=== PATIENT | female | born 1965 | race American Indian/Alaskan Native ===

== ENCOUNTER 2021-10-27 10:30 | Emergency (ER) | payer SELFPAY ==
[2021-10-27 14:06] VITALS: BP 130/87
--- NOTE | 2021-10-27 14:36 | Emergency Department Report ---
ED Neuro Deficit HPI - General Chief Complaint: Extremity Problem,Nontraumatic Stated Complaint: NUMBNESS IN LEGS Time Seen by Provider: 10/27/21 14:32 Source: patient Mode of arrival: Ambulatory Limitations: No Limitations - History of Present Illness Initial Comments: 56-year-old -[place] female who is a chronic smoker presents to the emergency room stating she has numbness to both for her legs for greater than 2 weeks. Patient denies any recent injury denies any diabetes denies any fever chills no back pain. States she does have a history of hypertension is currently not treated as she does not have a primary care provider. She is taking nothing for her hypertension. 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 Was noted that her blood pressure is 193/97 with no symptoms. Onset/Timin -: week(s) Location: left leg (Numbness), right leg Presenting Symptoms: Absent: Weak/Paralyzed One Side, Sudden, Severe Headache, Blurred/Loss of Vision, Facial Droop/Numbness, Unable to Speak Clearly, Altered Mental Status History of same: No Improves With: none Worsens With: none On Anticoagulants: No Context: gradual onset Associated Symptoms: denies other symptoms. denies: nausea/vomiting, vertigo, seizures, weakness Treatments Prior to Arrival: none - Related Data Home Medications: Home Medications Medication Instructions Recorded Confirmed Last Taken No Known Home Medications [No 10/27/21 10/27/21 Unknown Reported Home Medications] Allergies/Adverse Reactions: Allergies Allergy/AdvReac Type Severity Reaction Status Date / Time aspirin AdvReac Bleeding Verified 10/27/21 12:01 ED Review of Systems ROS: Stated complaint: NUMBNESS IN LEGS Other details as noted in HPI Comment: All other systems reviewed and negative ED Past Medical Hx - Social History Smoking Status: Never Smoker Substance Use Type: None - Medications Home Medications: Home Medications Medication Instructions Recorded Confirmed Last Taken Type No Known Home Medications [No 10/27/21 10/27/21 Unknown History Reported Home Medications] ED Neuro Physical Exam - General Limitations: No Limitations General appearance: alert, in no apparent distress Suspected Stroke: No - Head Head exam: Present: atraumatic, normocephalic - Eye Eye exam: Present: EOMI - ENT ENT exam: Present: normal external ear exam - Neck Neck exam: Present: normal inspection, full ROM - Respiratory Respiratory exam: Absent: respiratory distress - Cardiovascular Cardiovascular Exam: Present: regular rate - Extremities Exam Extremities exam: Present: full ROM, normal capillary refill, other (Tactile intact on lower extremities). Absent: tenderness, pedal edema, calf tenderness - Back Exam Back exam: Present: normal inspection, full ROM. Absent: muscle spasm - Neurological Exam Neurological exam: Present: alert, oriented X3, normal gait - NIHSS Assessment Interval: Baseline 1a. Level of Consciousness: alert/keenly responsive 1b. LOC Questions: answers both correctly 1c. LOC Commands: performs tasks correctly 2. Best Gaze: normal 3. Visual: no visual loss 4. Facial Palsy: normal symmetrical movement 6a. Motor Leg Left: no drift 6b. Motor Leg Right: no drift 7. Limb Ataxia: absent 8. Sensory: normal 9. Best Language: no aphasia 10. Dysarthria: normal 11. Extinction/Inattention: no abnormality - Psychiatric Psychiatric exam: Present: normal affect, normal mood - Skin Skin exam: Present: warm, dry, intact, normal color. Absent: rash ED Course Vital Signs 10/27/21 10/27/21 11:55 14:04 Temperature 97.7 F 98.9 F Pulse Rate 89 77 Respiratory 18 18 Rate Blood Pressure 193/97 130/87 [Right] O2 Sat by Pulse 98 97 Oximetry - Medical Decision Making 56-year-old -[place] female who is a chronic smoker presents to the emergency room stating she has numbness to both for her legs for greater than 2 weeks. Patient denies any recent injury denies any diabetes denies any fever chills no back pain. States she does have a history of hypertension is cu rrently not treated as she does not have a primary care provider. She is taking nothing for her hypertension. 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 Was noted that her blood pressure is 193/97 with no symptoms. Discussed with patient she needs to follow-up with her primary care provider. Patient has no back injury no fever no loss of urinary or bowel incontinent. She is able to ambulate without ataxia. She does smoke cigarettes which increases blood flow to the lower extremities which can cause numbness and tingling. Critical care attestation.: If time is entered above; I have spent that time in minutes in the direct care of this critically ill patient, excluding procedure time. ED Disposition Clinical Impression: Numbness and tingling of both lower extremities, Hypertension Disposition: HOME / SELF CARE / HOMELESS Is pt being admited?: No Does the pt Need Aspirin: No Condition: Stable Instructions: Peripheral Neuropathy, Paresthesia, [id number], Hypertension (ED) Additional Instructions: Recommend to discontinue smoking as this increases for peripheral neuropathy increases for peripheral vascular and peripheral artery disease. I recommend to follow-up with a primary care provider I have listed their information below for your convenience. Referrals: [facility] [Provider Group] - 3-5 Days SONAM FERRER MD [Staff Physician] - 3-5 Days Forms: Work/School Release Form(ED) Time of Disposition: 14:38
== END 2021-10-27 15:00 | disposition home or self-care (01) ==
LOC: ED 10:30
DX: R20.2 Paresthesia of skin (principal); I10 Essential (primary) hypertension
CPT/HCPCS: 99282

== ENCOUNTER 2021-11-02 15:50 | Inpatient (IN) | payer SELFPAY ==
--- NOTE | 2021-11-02 16:22 | Cat Scan Report ---
CT HEAD WITHOUT CONTRAST INDICATION / CLINICAL INFORMATION: CODE STROKE CALL [phone] Left-sided weakness. TECHNIQUE: All CT scans at this location are performed using CT dose reduction for ALARA by means of automated e xposure control. COMPARISON: None available. FINDINGS: HEMORRHAGE: No evidence of intracranial hemorrhage or extra-axial fluid collection. EXTRA-AXIAL SPACES: Cortical sulci, sylvian fissures and basilar cisterns are at the upper limit of n ormal for size given the patient's age of 56 years. VENTRICULAR SYSTEM: The third and lateral ventricles are of normal size and configuration. CEREBRAL PARENCHYMA: There is evidence of remote small deep infarction in the left thalamus. No indic ation of acute ischemic injury is observed on this noncontrast head CT. MIDLINE SHIFT OR HERNIATION: There is no mass effect. CEREBELLUM / BRAINSTEM: There is a region of decreased attenuation at the pontomesencephalic junction to the left the midline which may represent a remote small deep infarction in this location. MIDLINE STRUCTURES:No abnormalities of the pituitary gland or pineal region are identified. INTRACRANIAL VESSELS: Calcified atherosclerotic plaque is present along the course of the cavernous s egments of both internal carotid arteries. ORBITS: visualized portions of the orbits have an unremarkable appearance. SOFT TISSUES of HEAD: No significant abnormality. CALVARIUM: Evaluation of bone windows reveals no abnormalities. PARANASAL SINUSES / MASTOID AIR CELLS: Visualized portions of the paranasal sinuses are free from inf lammatory mucosal disease. Mastoid air cells are normally pneumatized. IMPRESSION: 1. 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 2. No acute intracranial abnormalities are identified. CODE STROKE: Time of Communication (PSYCHODRAMATIST/CDT): 1515 Central standard time Licensed Practitioner Receiving Report: Dr. Leach of the [facility] emergency de partment. Signer Name: Migue Luevano MD Signed: 11/02/2021 4:18 PM Workstation Name: [id number]
--- NOTE | 2021-11-02 16:32 | Emergency Department Report ---
Blank Doc - Documentation Documentation: [place] [facility] Consult Note # Demographics Consult Type: Acute Stroke Level 2 (4.5-24 hrs) Patient Location: Emergency Room First Name: Apurva Last Name: Renetta Age: 56 Gender: Female Facility: [facility] Time of Initial Page ( Time): 11/02/2021, 15:36 Time of Return Call ( Time): 11/02/2021, 15:36 # HPI History: 56yo F with left weakness since last night # Scores Time of exam and NIHSS ( Time): 11/02/2021, 15:50 Level of Consciousness 1a: [0] = Alert; keenly responsive LOC Questions 1b: [0] = Answers both questions correctly LOC Commands 1c: [0] = Performs both tasks correctly Best Gaze 2: [0] = Normal Visual 3: [0] = No visual loss Facial Palsy 4: [0] = Normal symmetrical movements Motor Arm Left 5a: [1] = Drift Motor Arm Right 5b: [0] = No drift Motor Leg Left 6a: [0] = No drift Motor Leg Right 6b: [0] = No drift Limb Ataxia 7: [0] = Absent Sensory 8: [1] = [id number] sensory loss Best Language 9: [0] = No aphasia Dysarthria 10: [0] = Normal Extinction and Inattention 11: [0] = No abnormality NIHSS Total: 2 # PMH-FH-SH Past Medical History: hypertension stroke # Assessment Impression: Ischemic Stroke (Acute) Stroke Mimic # Plan Thrombolytic/Intervention: NOT IV Thrombolysis or IA Intervention candidate Thrombolytic Exclusion: > 4.5 hours Intraarterial Exclusion: clinically consistent with small vessel disease Other: I have discussed my recommendations with the referring provider Additional Recommendations: MRI brain if symptoms persist # Logistics Telemedicine: Interactive 2 way audio and visual telecommunication technology was utilized during this visit
[2021-11-02 16:33] LABS: Basophils % (Auto) 0.5 % (0.0-1.8); Eosinophils # (Auto) 0.1 K/mm3 (0.0-0.4); Eosinophils % (Auto) 1.1 % (0.0-4.3); Hematocrit 39.8 % (30.3-42.9); Hemoglobin 13.4 gm/dl (10.1-14.3); Lymphocytes # (Auto) 1.3 K/mm3 (1.2-5.4); Lymphocytes % (Auto) 20.5 % (13.4-35.0); Mean Corpuscular HGB Conc 34 % (30-34); Mean Corpuscular Volume 114 fl (79-97); Monocytes # (Auto) 0.7 K/mm3 (0.0-0.8); Monocytes % (Auto) 10.8 % (0.0-7.3); Platelet Count 248 K/mm3 (140-440); Red Cell Distribution Width 17.2 % (13.2-15.2)
[2021-11-02 16:52] LABS: BUN/Creatinine Ratio 12; Blood Urea Nitrogen 6 mg/dL (7-17); Calcium 8.4 mg/dL (8.4-10.2); Hemolysis Index 47
--- NOTE | 2021-11-02 16:52 | Emergency Department Report ---
HPI - General Chief Complaint: Neuro Symptoms/Deficit Time Seen by Provider: 11/02/21 15:59 - [facility] HPI: Room 19 The patient is a 56-year-old female present with chief complaint of left-sided weakness. The patient admits to having nausea vomiting diarrhea for the past 3 to 4 weeks in addition to tingling of both hands and feet. Patient states on 10/28/2021 she noticed increased weakness of her left arm and left leg she began feeling off balance. Patient has residual left-sided weakness from previous CVA years ago but she states this weakness worsened. Today the patient states she developed an occipital headache and even more weakness in her left upper extremity left lower extremity. Patient complains of numbness in bilateral lower extremities. Patient also states she had intermittent sharp left-sided chest pain last night ED Past Medical Hx - Past Medical History Hx Hypertension: Yes Hx CVA: Yes (Residual left-sided weakness) - Surgical History Past Surgical History?: No - Family History Family history: no significant - Social History Smoking Status: Former Smoker (None x2-months) Substance Use Type: None (Denies illicit drug use), Alcohol (Occasional) - Medications Home Medications: Home Medications Medication Instructions Recorded Confirmed Last Taken Type No Known Home Medications [No 10/27/21 10/27/21 Unknown History Reported Home Medications] ED Review of Systems ROS: Stated complaint: CODE STROKE Other details as noted in HPI Constitutional: no symptoms reported Eyes: denies: eye pain ENT: denies: throat pain Respiratory: no symptoms reported Cardiovascular: chest pain Endocrine: no symptoms reported Gastrointestinal: nausea, vomiting, diarrhea Genitourinary: denies: dysuria Musculoskeletal: denies: back pain Neurological: headache, weakness, numbness Physical Exam - Physical Exam Physical Exam: GENERAL: The patient is well-developed well-nourished female lying on stretcher not appear to be in acute. [] HEENT: Normocephalic. Atraumatic. Extraocular motions are intact. Patient has moist mucous membranes. NECK: Supple. Trachea midline CHEST/LUNGS: Clear to auscultation. There is no respiratory distress noted. HEART/CARDIOVASCULAR: Regular. There is no tachycardia. There is no gallop rub or murmur. ABDOMEN: Abdomen is soft, nontender. Patient has normal bowel sounds. There is no abdominal distention. SKIN: There is no rash. There is no edema. There is no diaphoresis. NEURO: The patient is awake, alert, and oriented. The patient is cooperative. Cranial nerves II through XII grossly intact. The patient is able to hold the right upper extremity at 45 degree angle for 10-second count without drift. Patient is able to hold left upper extremity at 45 degree angle for 10-second count however it drifts but does not go all the way to the bed. The patient is able to hold right lower extremity at 30 degree angle for 5-second count however it drifts but does not fall back to the stretcher. Patient is able to hold left lower extremity at 30 degree angle for 5-second count however it falls back to the stretcher before 5 seconds. The patient has normal speech. NIHSS=4. GCS 15 MUSCULOSKELETAL: There is no evidence of acute injury. ED Medical Decision Making - Lab Data Result diagrams: 11/02/21 16:08 11/02/21 16:08 Laboratory Tests 11/02/21 11/02/21 11/02/21 15:52 16:08 16:08 WBC 6.3 RBC 3.50 L Hgb 13.4 Hct 39.8 MCV 114 H MCH 38 H MCHC 34 RDW 17.2 H Plt Count 248 Lymph % (Auto) 20.5 [place] % (Auto) 10.8 H Eos % (Auto) 1.1 Baso % (Auto) 0.5 Lymph # (Auto) 1.3 [place] # (Auto) 0.7 Eos # (Auto) 0.1 Baso # (Auto) 0.0 Seg Neutrophils % 67.1 Seg Neutrophils # 4.2 PT INR APTT Thrombin Time Sodium 135 L Potassium 2.3 L* Chloride 86.4 L Carbon Dioxide 32 H Anion Gap 19 BUN 6 L Creatinine 0.5 L Estimated GFR > 60 BUN/Creatinine Ratio 12 Glucose 95 POC Glucose 103 Calcium 8.4 Troponin T < 0.010 11/02/21 18:48 WBC RBC Hgb Hct MCV MCH MCHC RDW Plt Count Lymph % (Auto) Liberty % (Auto) Eos % (Auto) Baso % (Auto) Lymph # (Auto) [place] # (Auto) Eos # (Auto) Baso # (Auto) Seg Neutrophils % Seg Neutrophils # PT 13.1 INR 0.90 APTT 26.6 Thrombin Time 17.6 Sodium Potassium Chloride Carbon Dioxide Anion Gap BUN Creatinine Estimated GFR BUN/Creatinine Ratio Glucose POC Glucose Calcium Troponin T - EKG Data -: EKG Interpreted by Me EKG shows normal: sinus rhythm Rate: normal - EKG Data When compared to previous EKG there are: previous EKG unavailable Interpretation: other (No ischemic changes seen) - Radiology Data Radiology results: report reviewed (CT head), image reviewed (CT head) [facility] [address] [place] [address] Cat Scan Report Signed Patient: AMBAR MAYES MR#: [id number] : 1965 Acct:[id number] Age/Sex: 56 / F ADM Date: 11/02/21 Loc: ED Attending Dr: Ordering Physician: JOYCE HERNÁNDEZ MD Date of Service: 11/02/21 Procedure(s): CT head/brain wo con Accession Number(s): [id number] cc: JOYCE HERNÁNDEZ MD CT HEAD WITHOUT CONTRAST INDICATION / CLINICAL INFORMATION: CODE STROKE CALL [phone] Left-sided weakness. TECHNIQUE: All CT scans at this location are performed using CT dose reduction for ALARA by means of automated exposure control. COMPARISON: None available. FINDINGS: HEMORRHAGE: No evidence of intracranial hemorrhage or extra-axial fluid collection. EXTRA-AXIAL SPACES: Cortical sulci, sylvian fissures and basilar cisterns are at the upper limit of normal for size given the patient's age of 56 years. VENTRICULAR SYSTEM: The third and lateral ventricles are of normal size and configuration. CEREBRAL PARENCHYMA: There is evidence of remote small deep infarction in the left thalamus. No indication of acute ischemic injury is observed on this noncontrast head CT. MIDLINE SHIFT OR HERNIATION: There is no mass effect. CEREBELLUM / BRAINSTEM: There is a region of decreased attenuation at the pontomesencephalic junction to the left the midline which may represent a remote small deep infarction in this location. MIDLINE STRUCTURES:No abnormalities of the pituitary gland or pineal region are identified. INTRACRANIAL VESSELS: Calcified atherosclerotic plaque is present along the course of the cavernous segments of both internal carotid arteries. ORBITS: visualized portions of the orbits have an unremarkable appearance. SOFT TISSUES of HEAD: No significant abnormality. CALVARIUM: Evaluation of bone windows reveals no abnormalities. PARANASAL SINUSES / MASTOID AIR CELLS: Visualized portions of the paranasal sinuses are free from inflammatory mucosal disease. Mastoid air cells are normally pneumatized. IMPRESSION: 1. Evidence of remote small deep infarctions left thalamus and pontomesencephalic junction to the left midline. 2. No acute i ntracranial abnormalities are identified. CODE STROKE: Time of Communication (REGISTERED NURSE BEHAVIORAL HEALTH/CDT): 1515 Central standard time Licensed Practitioner Receiving Report: Dr. Hernández of the [facility] emergency department. Signer Name: Migue Luevano MD Signed: 11/02/2021 4:18 PM Workstation Name: [id number] Transcribed By: Dictated By: Migue Luevano MD Electronically Authenticated By: Migue Champion MD Signed Date/Time: 11/02/211617 DD/ 09 TD/TT: - Differential Diagnosis CVA, hypokalemic periodic paralysis Critical care attestation.: If time is entered above; I have spent that time in minutes in the direct care o f this critically ill patient, excluding procedure time. ED Disposition Clinical Impression: Hypokalemia, Left-sided weakness Disposition: ADMITTED INPATIENT Is pt being admited?: Yes Does the pt Need Aspirin: No Condition: Fair Time of Disposition: 19:19 (Care transferred to hospitalist (Dr. Gonzales))
[2021-11-02] MEDS: POTASSIUM CHLORIDE 10 MEQ 10 MEQ/100 ML BAG IV SCH ×2 (17:30→20:17)
[2021-11-02] MEDS ORDERED: ONDANSETRON 4 MG/2 ML INJ IV ONE (17:38)
[2021-11-02] MEDS ORDERED: SODIUM CHLORIDE 0.9% 500 ML 500 ML ONE (17:47)
[2021-11-02] MEDS: CLOPIDOGREL 300 MG TAB PO ONE (18:08)
[2021-11-02 19:06] LABS: INR 0.9 (0.87-1.13)
[2021-11-02 19:07] LABS: Partial Thromboplastin Time 26.6 Sec. (24.2-36.6); Thrombin Time 17.6 Sec. (15.1-19.6)
--- NOTE | 2021-11-02 21:46 | History and Physical Report ---
History of Present Illness Date of examination: 11/02/21 Date of admission: 11/02/2021 Chief complaint: Numbness and weakness in both lower extremities for 1 week History of present illness: 56-year-old -[place] Citizen female with history of cerebrovascular accident and residual left-sided weakness comes in for numbness in both lower extremities which is precluding her from walking. Patient noticed increased weakness of the left arm and left lower extremities on 10/28/2021. Today's 11/02/2022. Patient also complains of numbness and lack of sensation in both lower extremities. Because of that patient states he is unable to walk and falling frequently. Patient has residual left-sided weakness from previous CVA st. patient also has headaches. Very poor historian. - Past Medical History --Hypertension: Yes --CVA: Yes (Residual left-sided weakness) - Surgical History --Past Surgical History?: No - Family History --Family history: no significant - Social History --Smoking Status: Former Smoker (None x2-months) --Substance Use Type: None (Denies illicit drug use), Alcohol (Occasional) - Medications --Home Medications: Home Medications Medication Instructions Recorded Confirmed Last Taken Type No Known Home Medications [No 10/27/21 10/27/21 Unknown History Reported Home Medications] --Review of Systems --ROS: Stated complaint: CODE STROKE Other details as noted in HPI Constitutional: no symptoms reported Eyes: denies: eye pain ENT: denies: throat pain Respiratory: no symptoms reported Cardiovascular: chest pain Endocrine: no symptoms reported Gastrointestinal: nausea, vomiting, diarrhea Genitourinary: denies: dysuria Musculoskeletal: denies: back pain Neurological: headache, weakness, numbness Medications and Allergies Allergies Allergy/AdvReac Type Severity Reaction Status Date / Time aspirin AdvReac Bleeding Verified 10/27/21 12:01 Home Medications Medication Instructions Recorded Confirmed Last Taken Type No Known Home Medications [No 10/27/21 10/27/21 Unknown History Reported Home Medications] Exam - Constitutional Vitals: Temp Pulse Resp BP Pulse Ox 79 24 180/74 90 11/02/21 20:00 11/02/21 20:00 11/02/21 20:00 11/02/21 20:00 General appearance: Present: no acute distress, well-nourished - EENT Eyes: Present: PERRL ENT: hearing intact, clear oral mucosa - Neck Neck: Present: supple, normal ROM - Respiratory Respiratory effort: normal Respiratory: bilateral: CTA - Cardiovascular Heart rate: 78 Rhythm: regular Heart Sounds: Present: S1 & S2. Absent: rub, click - Extremities Extremities: no ischemia, pulses symmetrical, No edema Peripheral Pulses: within normal limits - Abdominal General gastrointestinal: Present: soft, non-tender, non-distended, normal bowel sounds Female genitourinary: Present: normal - Integumentary Integumentary: Present: clear, warm, dry - Musculoskeletal Musculoskeletal: left sided weakness (4/5 power in both upper and lower extremities on the right side) - Psychiatric Psychiatric: appropriate mood/affect, intact judgment & insight - Neurologic Neurologic: CNII-XII intact, focal deficits, moves all extremities (Left-sided weakness, decreased sensation both lower extremities) - Allied Health Allied health notes reviewed: nursing, case management HEART Score - HEART Score Troponin: Troponin T < 0.010 ng/mL (0.00-0.029) 11/02/21 16:08 Results - Labs CBC & Chem 7: 11/03/21 04:10 11/03/21 04:10 Labs: Laboratory Last Values WBC 6.3 K/mm3 (4.5-11.0) 11/02/21 16:08 RBC 3.50 M/mm3 (3.65-5.03) L 11/02/21 16:08 Hgb 13.4 gm/dl (10.1-14.3) 11/02/21 16:08 Hct 39.8 % (30.3-42.9) 11/02/21 16:08 MCV 114 fl (79-97) H 11/02/21 16:08 MCH 38 pg (28-32) H 11/02/21 16:08 MCHC 34 % (30-34) 11/02/21 16:08 RDW 17.2 % (13.2-15.2) H 11/02/21 16:08 Plt Count 248 K/mm3 (140-440) 11/02/21 16:08 Lymph % (Auto) 20.5 % (13.4-35.0) 11/02/21 16:08 Porter % (Auto) 10.8 % (0.0-7.3) H 11/02/21 16:08 Eos % (Auto) 1.1 % (0.0-4.3) 11/02/21 16:08 Baso % (Auto) 0.5 % (0.0-1.8) 11/02/21 16:08 Lymph # (Auto) 1.3 K/mm3 (1.2-5.4) 11/02/21 16:08 Porter # (Auto) 0.7 K/mm3 (0.0-0.8) 11/02/21 16:08 Eos # (Auto) 0.1 K/mm3 (0.0-0.4) 11/02/21 16:08 Baso # (Auto) 0.0 K/mm3 (0.0-0.1) 11/02/21 16:08 Seg Neutrophils % 67.1 % (40.0-70.0) 11/02/21 16:08 Seg Neutrophils # 4.2 K/mm3 (1.8-7.7) 11/02/21 16:08 PT 13.1 Sec. (12.2-14.9) 11/02/21 18:48 INR 0.90 (0.87-1.13) 11/02/21 18:48 APTT 26.6 Sec. (24.2-36.6) 11/02/21 18:48 Thrombin Time 17.6 Sec. (15.1-19.6) 11/02/21 18:48 Sodium 135 mmol/L (137-145) L 11/02/21 16:08 Potassium 2.3 mmol/L (3.6-5.0) L* 11/02/21 16:08 Chloride 86.4 mmol/L (98-107) L 11/02/21 16:08 Carbon Dioxide 32 mmol/L (22-30) H 11/02/21 16:08 Anion Gap 19 mmol/L 11/02/21 16:08 BUN 6 mg/dL (7-17) L 11/02/21 16:08 Creatinine 0.5 mg/dL (0.6-1.2) L 11/02/21 16:08 Estimated GFR > 60 ml/min 11/02/21 16:08 BUN/Creatinine Ratio 12 % 11/02/21 16:08 Glucose 95 mg/dL (65-100) 11/02/21 16:08 POC Glucose 103 mg/dL (70-105) 11/02/21 15:52 Calcium 8.4 mg/dL (8.4-10.2) 11/02/21 16:08 Troponin T < 0.010 ng/mL (0.00-0.029) 11/02/21 16:08 Short CBC 11/02/21 11/03/21 Range/Units 16:08 04:10 WBC 6.3 6.4 (4.5-11.0) K/mm3 Hgb 13.4 12.2 (10.1-14.3) gm/dl Hct 39.8 36.7 (30.3-42.9) % Plt Count 248 207 (140-440) K/mm3 BMP 11/02/21 11/03/21 16:08 04:10 Sodium 135 L 140 Potassium 2.3 L* 2.5 L* Chloride 86.4 L 90.7 L Carbon Dioxide 32 H 35 H BUN 6 L 6 L Creatinine 0.5 L 0.4 L Glucose 95 94 Calcium 8.4 8.0 L Cardiac Enzymes 11/02/21 Range/Units 16:08 Troponin T < 0.010 (0.00-0.029) ng/mL Liver Function 11/03/21 Range/Units 04:10 Total Bilirubin 1.60 H (0.1-1.2) mg/dL AST 32 (5-40) units/L ALT 16 (7-56) units/L Alkaline Phosphatase 56 (35-129) units/L Albumin 3.1 L (3.9-5) g/dL - Imaging and Cardiology Imaging and Cardiology: Head evidence of remote small deep infarctions in the left thalamus and pontine/Cephalic junction to the left midline No acute intracranial abnormalities or bleed. Assessment and Plan Advance Directives: Yes (Full code) VTE prophylaxis?: Chemical Plan of care discussed with patient/family: Yes - Patient Problems (1) Acute CVA (cerebrovascular accident) Current Visit: Yes Status: Acute Plan to address problem: Unlikely Patient has vague symptoms of both lower extremity numbness and difficulty walking because of not able to feel the ground We will defer to neurology regarding diagnosis Possible recrudescence of the left hemiplegia CVA work-up including MRI carotid And echocardiogram Neurology consult Aspirin and Plavix High intensity statins PT and OT (2) Hypokalemia Current Visit: Yes Status: Acute Plan to address problem: Supplemented aggressively (3) Numbness and tingling of both lower extremities Current Visit: No Status: Acute Plan to address problem: Lower extremity sensory loss does not explain any acute CVA. Patient has loss of sensation in both lower extremities. LS spine etiology to be ruled out We will defer to neurology. (4) Hypertension Current Visit: Yes Status: Chronic Qualifiers: Hypertension type: primary hypertension Qualified Code(s): I10 - Essential (primary) hypertension Plan to address problem: Continue home antihypertensives and adjust medications (5) Hyperlipidemia Current Visit: Yes Status: Chronic Qualifiers: Hyperlipidemia type: mixed hyperlipidemia Qualified Code(s): E78.2 - Mixed hyperlipidemia Plan to address problem: Continue statins (6) Malnutrition Current Visit: Yes Status: Chronic Qualifiers: Malnutrition type: protein-calorie malnutrition Protein-calorie malnutrition severity: moderate Qualified Code(s): E44.0 - Moderate protein- calorie malnutrition Plan to address problem: Dietary supplements for now (7) DVT prophylaxis Current Visit: Yes Status: Acute Plan to address problem: On anticoagulation GI prophylaxis (8) Advance care planning Current Visit: Yes Status: Acute Plan to address problem: Disease education conducted, care plan discussed, diagnosis discussed, prognosis discussed. Patient is full code. Patient acknowledges understanding and agreement with care plan. +30 minutes.
[2021-11-02] MEDS ORDERED: ONDANSETRON 4 MG/2 ML INJ IV PRN (21:57)
[2021-11-02] MEDS ORDERED: ACETAMINOPHEN 325 MG TAB PO PRN (21:57)
[2021-11-02] MEDS ORDERED: MORPHINE 2 MG/1 ML INJ IV PRN (22:00)
[2021-11-02] MEDS ORDERED: METOCLOPRAMIDE 10 MG/2 ML INJ IV PRN (22:00)
[2021-11-02] MEDS ORDERED: SODIUM CHLORIDE 0.9% 1000 ML 1,000 ML IV SCH (22:00)
[2021-11-03] MEDS ORDERED: POTASSIUM CHLORIDE ER 20 MEQ TAB PO ONE ×2 (02:00→06:32)
[2021-11-03 04:38] LABS: Basophils % (Auto) 0.6 % (0.0-1.8); Eosinophils # (Auto) 0.1 K/mm3 (0.0-0.4); Eosinophils % (Auto) 1.7 % (0.0-4.3); Hematocrit 36.7 % (30.3-42.9); Hemoglobin 12.2 gm/dl (10.1-14.3); Lymphocytes # (Auto) 1.3 K/mm3 (1.2-5.4); Lymphocytes % (Auto) 20.1 % (13.4-35.0); Mean Corpuscular HGB Conc 33 % (30-34); Mean Corpuscular Volume 115 fl (79-97); Monocytes # (Auto) 0.7 K/mm3 (0.0-0.8); Monocytes % (Auto) 11.1 % (0.0-7.3); Platelet Count 207 K/mm3 (140-440); Red Blood Count 3.19 M/mm3 (3.65-5.03); Red Cell Distribution Width 17.2 % (13.2-15.2)
[2021-11-03 05:09] LABS: Alanine Aminotransferase 16 units/L (7-56); Albumin 3.1 g/dL (3.9-5); Blood Urea Nitrogen 6 mg/dL (7-17); Chol/HDL Ratio 5.45 %; HDL Cholesterol 31 mg/dL (40-59); Hemolysis Index 33; LDL Cholesterol,Direct 110 mg/dL (50-130)
[2021-11-03 05:11] LABS: BUN/Creatinine Ratio 15
[2021-11-03] MEDS: POTASSIUM CHLORIDE 10 MEQ 10 MEQ/100 ML BAG IV SCH ×6 (07:31→16:43)
[2021-11-03] MEDS: HEPARIN 5,000 UNIT/1 ML VIAL SUB-Q SCH ×4 (07:32→22:30)
[2021-11-03] MEDS: POTASSIUM CHLORIDE ER 20 MEQ TAB PO ONE ×2 (07:34→08:09)
[2021-11-03] MEDS: CLOPIDOGREL 300 MG TAB PO ONE ×2 (07:34→08:24)
[2021-11-03] MEDS: hydrALAZINE 25 MG TAB PO PRN ×3 (08:50→22:50)
--- NOTE | 2021-11-03 09:47 | Consultation ---
History of Present Illness Consult date: 11/03/21 Reason for Consult: CVA Chief complaint: Worsening left-sided weakness History of present illness: 56 yo right-handed female with hypertension, cva w/ residual left-sided weakness who presents with worsening weakness of the left arm/leg and also wit noted numbness of bilateral feet (up to knees) over the last 1 month with associated nausea, diarrhea. She thinks she has lost some weight over the last one month. She notes no acute changes in her primary senses, vertigo, chest pain/pressure, or palpiations or any covid-19 symptoms. Past History Past Medical History: hypertension, stroke Past Surgical History: No surgical history Social history: other (occassional alcohol; former smoker;) Family history: hypertension Medications and Allergies Allergies Allergy/AdvReac Type Severity Reaction Status Date / Time aspirin AdvReac Bleeding Verified 10/27/21 12:01 Home Medications Medication Instructions Recorded Confirmed Last Taken Type No Known Home Medications [No 10/27/21 10/27/21 Unknown History Reported Home Medications] Active Meds: Active Medications Acetaminophen (Acetaminophen 325 Mg Tab) 650 mg PO Q4H PRN PRN Reason: Pain MILD(1-3)/Fever >100.5/REMY Atorvastatin Calcium (Atorvastatin 40 Mg Tab) 40 mg PO QHS RIVERA Heparin Sodium (Porcine) (Heparin 5,000 Unit/1 Ml Vial) 5,000 unit SUB-Q Q12HR RIVERA Last Admin: 11/03/21 09:02 Dose: Not Given Hydralazine HCl (Hydralazine 25 Mg Tab) 25 mg PO Q8HR PRN PRN Reason: Hypertension Last Admin: 11/03/21 08:50 Dose: 25 mg Potassium Chloride (Kcl 10meq/100ml) 10 meq in 100 mls @ 100 mls/hr IV Q1H RIVERA Stop: 11/03/21 12:59 Metoclopramide HCl (Metoclopramide 10 Mg/2 Ml Inj) 10 mg IV Q6H PRN PRN Reason: Nausea And Vomiting Morphine Sulfate (Morphine 2 Mg/1 Ml Inj) 2 mg IV Q4H PRN PRN Reason: Pain, Moderate (4-6) Nifedipine (Nifedipine Xl 30 Mg Tab) 30 mg PO QDAY RIVERA Ondansetron HCl (Ondansetron 4 Mg/2 Ml Inj) 4 mg IV Q8H PRN PRN Reason: Nausea And Vomiting Oxycodone/Acetaminophen (Oxycodone /Acetaminophen 5-325mg Tab) 1 tab PO Q6H PRN PRN Reason: Pain, Moderate (4-6) Sodium Chloride (Sodium Chloride 0.9% 10 Ml Flush Syringe) 10 ml IV BID RIVERA Last Admin: 11/03/21 07:32 Dose: Not Given Sodium Chloride (Sodium Chloride 0.9% 10 Ml Flush Syringe) 10 ml IV PRN PRN PRN Reason: LINE FLUSH Review of Systems All systems: negative (as per hpi;) Physical Examination - Vital Signs Vital Signs: Vital Signs BP 183/92 11/02/21 16:33 - Physical Exam Narrative exam: Gen: nad, well-nourished; Head: normocephalic; Eyes: no gaze deviation; no ptosis; ENT: normal vocalization; CVS: warm and well-perfused; Pulm: no respiratory distress; GI: appears non-distended; Ext: no cyanosis appreciated at distal extremities; Skin: no acute rash at distal extremities; Heme: no pathologic ecchymosis appreciated at distal extremities; Neuro: alert, oriented to name, age, month, year, surroundings, no dysarthria, no aphasia, CN 2 - PERRL, visual prasad grossly intact, CN 3, 4, 6 - EOMI, CN 5 - facial sensation symmetric to light touch, CN 7 - facial movement symmetric, CN 8 - hearing grossly intact, CN 9, 10 - uvula midline, CN 11 symmetric shoulder movement, CN 12 - tongue midline; Motor - bue slight drift; at least 3/5 at lue; at least 4+/5 at rue; at least 4-/5 at ble except ankle plantar flexion with 2-/5 bilaterally; Sensory - light touch symmetric but decreased at bilateral feet, Cerebellar - fnf /hts intact, Gait - deferred secondary to fall risk; NIHSS (1a.) Level of Consciousness:0 (1b.) LOC Questions:0 (1c.) LOC Commands:0 (2.) Best Gaze:0 (3.) Visual:0 (4.) Facial Palsy:0 (5a.) Motor Arm, Left:1 (5b.) Motor Arm, Right:1 (6a.) Motor Leg, Left:0 (6b.) Motor Leg, Right:0 (7.) Limb Ataxia:0 (8.) Sensory:1 (9.) Best Language:0 (10.) Dysarthria:0 (11.) Extinction and Inattention:0 NIHSS Total Score: 2 Results - Laboratory Findings CBC and BMP: 11/03/21 04:10 11/03/21 04:10 Abnormal Lab Findings: Abnormal Labs 11/02/21 11/02/21 11/03/21 16:08 16:08 04:10 RBC 3.50 L 3.19 L MCV 114 H 115 H MCH 38 H 38 H RDW 17.2 H 17.2 H Baldwin % (Auto) 10.8 H 11.1 H Sodium 135 L Potassium 2.3 L* Chloride 86.4 L Carbon Dioxide 32 H BUN 6 L Creatinine 0.5 L Calcium Total Bilirubin Total Protein Albumin HDL Cholesterol 11/03/21 04:10 RBC MCV MCH RDW Baldwin % (Auto) Sodium Potassium 2.5 L* Chloride 90.7 L Carbon Dioxide 35 H BUN 6 L Creatinine 0.4 L Calcium 8.0 L Total Bilirubin 1.60 H Total Protein 5.9 L Albumin 3.1 L HDL Cholesterol 31 L Assessment and Plan 56 yo right-handed female with hypertension, cva w/ residual left-sided weakness who presents with worsening weakness of the left arm/leg and also with noted numbness of bilateral feet (up to knees) over the last 1 month with associated nausea, diarrhea. She thinks she has lost some weight over the last one month. 1. Acute Ischemic Stroke (vs Recrudescence) - in the setting of underlying hypokalemia in a background of weight loss with nausea, emesis, and diarrhea; pt notes noncompliance with medications; nihss q8 hours; mri brain w/ wo contrast when clinicially stable; further testing (tte, stroke labs) based on mri findings; confirm covid-19, uds, rpr, tsh. 2. Hypertension - permissive hypertension for 24 hours. 3. Generalized Weakness - likely secondary to severe hypokalemia; ordered preablumin, b12, tsh, ck. 4. Numbness - confirm b12, tsh, esr, crp; outpatient emg-[id number]. 5. Bilateral Plantar Flexion Deficits - atypical presentation; in the setting of hypocalcemia/hypokalemia; confirm magnesium levels (per primary team). 6. Nausea / Emesis / Diarrhea / Bilirubinemia - evaluation/management per primary team. 7. Unsteady Gait - pt/ot evaluation/monitoring. Kirk Ortega MD Neurology [id number]
--- NOTE | 2021-11-03 11:35 | Electrocardiograph Report ---
[facility] Test Date: 2021-11-02 Test Time: 16:27:38 Pat Name: AMBAR MAYES Department: Room: [place] [address] Gender: F Front Desk: GP : 1965 Requested By: JOYCE HERNÁNDEZ Order Number: [id number] Reading MD: Jason Reddy Measurements Intervals [place] Rate: 77 P: 50 UT: 165 QRS: -2 QRSD: 107 T: 33 QT: 487 QTc: 550 Interpretive Statements Sinus rhythm Probable left atrial enlargement Anterolateral infarct, old Prolonged QT interval Mild ST depressions in inferior and lateral leads. No previous ECG available for comparison Electronically Signed On 11-03-2021 11:34:53 EDT by Jason Reddy
--- NOTE | 2021-11-03 13:00 | Vascular Lab Report ---
DUPLEX DOPPLER ULTRASOUND CAROTID, BILATERAL INDICATION / CLINICAL INFORMATION: stroke. COMPARISON: None available. FINDINGS: RIGHT CAROTID: Mild atherosclerotic plaque. - PLAQUE ESTIMATE (%): < 50% - CCA velocity: 111 cm/sec. - ICA peak systolic velocity: 85 cm/sec. - ICA/CCA PSV Ratio: Less than 2. Right Vertebral Artery: Antegrade flow. LEFT CAROTID: Mild/moderate atherosclerotic plaque. - PLAQUE ESTIMATE (%): < 50% - CCA velocity: 73 cm/sec. - ICA peak systolic velocity: 102 cm/sec. - ICA/CCA PSV Ratio: Less than 2. Left Vertebral Artery: Antegrade flow. IMPRESSION: 1. Right Internal Carotid Artery: Less than 50% diameter stenosis. 2. Left Internal Carotid Artery: Less than 50% diameter stenosis. Velocity criteria are extrapolated from diameter data as defined by the Society of Radiologists in Ul trasound Consensus Conference, Radiology 2003; 229;340-346. NO STENOSIS (NORMAL) - Plaque = none; ICA PSV < 125 cm/sec; ICA/CCA PSV Ratio < 2.0 <50% STENOSIS - Plaque < 50%; ICA PSV < 125 cm/sec; ICA/CCA PSV Ratio < 2.0 50-69% STENOSIS - Plaque > 50%; ICA PSV = 125-230 cm/sec; ICA/CCA PSV Ratio = 2.0-4.0 >70% BUT <100% STENOSIS - Plaque > 50%; ICA PSV > 230 cm/sec; ICA/CCA PSV Ratio > 4.0 NEAR OCCLUSION - Plaque = visible lumen; ICA PSV = high/low/none; ICA/CCA PSV Ratio = variable TOTAL OCCLUSION - Plaque = no lumen; ICA PSV = none; ICA/CCA PSV Ratio = N/A Scribed by: Lynsey Mendez RDMS, RVT, RMSKS Scribed: 11/03/2021 10:36 AM I have reviewed the images, agree with this report, and edited this report as needed. Signer Name: Ariel Alejandro MD Signed: 11/03/2021 12:56 PM Workstation Name: [id number]
[2021-11-03] MEDS: NIFEdipine XL 30 MG TAB PO SCH (16:00)
--- NOTE | 2021-11-03 16:01 | Magnetic Resonance Report ---
MRI BRAIN WITHOUT CONTRAST INDICATION / CLINICAL INFORMATION: stroke. TECHNIQUE: Multisequence, multiplanar images were obtained. COMPARISON: CT head without contrast performed yesterday FINDINGS: CEREBRAL and CEREBELLAR HEMISPHERES: No evidence of mass or mass effect. No midline shift. No acute hemorrhage. No diffusion restriction to suggest acute infarct. No extra-axial fluid collection. M inimal to mild T2 signal abnormalities in the periventricular white matter is noted and consistent wi th chronic microvascular ischemic disease. 8 mm chronic lacunar infarct is identified in the left martha lamus. There are multiple small chronic lacunar infarcts in the marge. The largest measures 6 mm on th e left side. VENTRICLES: Normal in size and configuration for age. VISUALIZED ORBITS: No significant abnormality. VISUALIZED PARANASAL SINUSES: No significant abnormality. ADDITIONAL FINDINGS: None. IMPRESSION: No evidence for acute ischemia, hemorrhage or mass. Mild chronic white matter changes. Multiple small chronic lacunar infarcts in the left thalamus and marge as described. Signer Name: James Yung Jr, MD Signed: 11/03/2021 3:57 PM Workstation Name: [id number]
[2021-11-03] MEDS: POTASSIUM CHLORIDE ER 20 MEQ TAB PO SCH (22:30)
[2021-11-03] MEDS: oxyCODONE /ACETAMINOPHEN 5-325MG TAB PO PRN (22:50)
--- NOTE | 2021-11-04 06:21 | Progress Note ---
Assessment and Plan - Patient Problems (1) Acute CVA (cerebrovascular accident) Current Visit: Yes Status: Acute Plan to address problem: Unlikely Patient has vague symptoms of both lower extremity numbness and difficulty walking because of not able to feel the ground We will defer to neurology regarding diagnosis Possible recrudescence of the left hemiplegia CVA work-up including MRI carotid And echocardiogram Neurology consult Aspirin and Plavix High intensity statins PT and OT (2) Hypokalemia Current Visit: Yes Status: Acute Plan to address problem: Supplemented aggressively (3) Numbness and tingling of both lower extremities Current Visit: No Status: Acute Plan to address problem: Lower extremity sensory loss does not explain any acute CVA. Patient has loss of sensation in both lower extremities. LS spine etiology to be ruled out We will defer to neurology. (4) Hypertension Current Visit: Yes Status: Chronic Qualifiers: Hypertension type: primary hypertension Qualified Code(s): I10 - Essential (primary) hypertension Plan to address problem: Continue home antihypertensives and adjust medications (5) Hyperlipidemia Current Visit: Yes Status: Chronic Qualifiers: Hyperlipidemia type: mixed hyperlipidemia Qualified Code(s): E78.2 - Mixed hyperlipidemia Plan to address problem: Continue statins (6) Malnutrition Current Visit: Yes Status: Chronic Qualifiers: Malnutrition type: protein-calorie malnutrition Protein-calorie malnutrition severity: moderate Qualified Code(s): E44.0 - Moderate protein- calorie malnutrition Plan to address problem: Dietary supplements for now (7) DVT prophylaxis Current Visit: Yes Status: Acute Plan to address problem: On anticoagulation GI prophylaxis (8) Advance care planning Current Visit: Yes Status: Acute Plan to address problem: Disease education conducted, care plan discussed, diagnosis discussed, prognosis discussed. Patient is full code. Patient acknowledges understanding and agreement with care plan. +30 minutes. Subjective Date of service: 11/03/21 Objective - Constitutional Vitals: Vital Signs - 12hr 11/03/21 11/03/21 11/03/21 18:23 19:54 20:17 Temperature Pulse Rate Respiratory Rate Blood Pressure 214/97 216/112 Blood Pressure [Right] O2 Sat by Pulse 95 Oximetry 11/03/21 11/03/21 11/03/21 20:20 21:34 23:00 Temperature 97.5 F L Pulse Rate 88 76 79 Respiratory 18 11 L 16 Rate Blood Pressure Blood Pressure 201/91 209/99 [Right] O2 Sat by Pulse 95 99 99 Oximetry 11/04/21 11/04/21 01:28 02:27 Temperature 97.7 F 97.9 F Pulse Rate 83 79 Respiratory 18 16 Rate Blood Pressure 113/46 Blood Pressure 110/51 [Right] O2 Sat by Pulse 96 97 Oximetry General appearance: Present: no acute distress, well-nourished - EENT Eyes: PERRL, EOM intact ENT: hearing intact, clear oral mucosa Ears: bilateral: normal - Neck Neck: supple, normal ROM - Respiratory Respiratory effort: normal Respiratory: bilateral: CTA - Breasts Breasts: normal - Cardiovascular Rhythm: regular Heart Sounds: Present: S1 & S2. Absent: gallop, rub Extremities: pulses intact, No edema, normal color, Full ROM - Gastrointestinal General gastrointestinal: Present: soft, non-tender, non-distended, normal bowel sounds - Genitourinary Female genitourinary: normal - Integumentary Integumentary: clear, warm, dry - Musculoskeletal Musculoskeletal: 1, strength equal bilaterally - Neurologic Neurologic: moves all extremities - Psychiatric Psychiatric: memory intact, appropriate mood/affect, intact judgment & insight - Labs CBC & Chem 7: 11/03/21 04:10 11/03/21 04:10 HEART Score - HEART Score Troponin: Troponin T < 0.010 ng/mL (0.00-0.029) 11/02/21 16:08
[2021-11-04] MEDS: POTASSIUM CHLORIDE ER 20 MEQ TAB PO SCH ×3 (07:01→12:38)
[2021-11-04 08:06] LABS: Blood Urea Nitrogen 6 mg/dL (7-17); Calcium 8.5 mg/dL (8.4-10.2); Hemolysis Index 3
[2021-11-04 08:13] LABS: BUN/Creatinine Ratio 15
[2021-11-04] MEDS ORDERED: POTASSIUM CHLORIDE ER 20 MEQ TAB PO SCH ×2 (09:00→20:00)
[2021-11-04] MEDS: NIFEdipine XL 30 MG TAB PO SCH (09:27)
[2021-11-04] MEDS: HEPARIN 5,000 UNIT/1 ML VIAL SUB-Q SCH ×2 (09:27→21:15)
[2021-11-04] MEDS: POTASSIUM CHLORIDE 10 MEQ 10 MEQ/100 ML BAG IV SCH ×2 (09:32→09:33)
--- NOTE | 2021-11-04 15:34 | Progress Note ---
Assessment and Plan - Patient Problems (1) Acute CVA (cerebrovascular accident) Current Visit: Yes Status: Acute Plan to address problem: Unlikely Patient has vague symptoms of both lower extremity numbness and difficulty walking because of not able to feel the ground We will defer to neurology regarding diagnosis Possible recrudescence of the left hemiplegia CVA work-up including MRI carotid And echocardiogram Neurology consult Aspirin and Plavix High intensity statins PT and OT (2) Hypokalemia Current Visit: Yes Status: Acute Plan to address problem: Supplemented aggressively (3) Numbness and tingling of both lower extremities Current Visit: No Status: Acute Plan to address problem: Lower extremity sensory loss does not explain any acute CVA. Patient has loss of sensation in both lower extremities. LS spine etiology to be ruled out We will defer to neurology. (4) Hypertension Current Visit: Yes Status: Chronic Qualifiers: Hypertension type: primary hypertension Qualified Code(s): I10 - Essential (primary) hypertension Plan to address problem: Continue home antihypertensives and adjust medications (5) Hyperlipidemia Current Visit: Yes Status: Chronic Qualifiers: Hyperlipidemia type: mixed hyperlipidemia Qualified Code(s): E78.2 - Mixed hyperlipidemia Plan to address problem: Continue statins (6) Malnutrition Current Visit: Yes Status: Chronic Qualifiers: Malnutrition type: protein-calorie malnutrition Protein-calorie malnutrition severity: moderate Qualified Code(s): E44.0 - Moderate protein- calorie malnutrition Plan to address problem: Dietary supplements for now (7) DVT prophylaxis Current Visit: Yes Status: Acute Plan to address problem: On anticoagulation GI prophylaxis (8) Advance care planning Current Visit: Yes Status: Acute Plan to address problem: Disease education conducted, care plan discussed, diagnosis discussed, prognosis discussed. Patient is full code. Patient acknowledges understanding and agreement with care plan. +30 minutes. Subjective Date of service: 11/04/21 Objective - Constitutional Vitals: Vital Signs - 12hr 11/04/21 11/04/21 08:00 11:37 Temperature 97.8 F 98.4 F Pulse Rate 71 74 Respiratory 20 18 Rate Blood Pressure 150/59 148/54 O2 Sat by Pulse 98 95 Oximetry General appearance: Present: no acute distress, well-nourished - EENT Eyes: PERRL, EOM intact ENT: hearing intact, clear oral mucosa Ears: bilateral: normal - Neck Neck: supple, normal ROM - Respiratory Respiratory effort: normal Respiratory: bilateral: CTA - Breasts Breasts: normal - Cardiovascular Rhythm: regular Heart Sounds: Present: S1 & S2. Absent: gallop, rub Extremities: pulses intact, No edema, normal color, Full ROM - Gastrointestinal General gastrointestinal: Present: soft, non-tender, non-distended, normal bowel sounds - Genitourinary Female genitourinary: normal - Integumentary Integumentary: clear, warm, dry - Musculoskeletal Musculoskeletal: 1, strength equal bilaterally - Neurologic Neurologic: moves all extremities - Psychiatric Psychiatric: memory intact, appropriate mood/affect, intact judgment & insight - Labs CBC & Chem 7: 11/03/21 04:10 11/04/21 06:41 Labs: Abnormal lab results 11/04/21 11/04/21 11/04/21 Range/Units 06:41 06:41 06:41 Potassium 2.7 L* (3.6-5.0) mmol/L Chloride 94.0 L (98-107) mmol/L Carbon Dioxide 32 H (22-30) mmol/L BUN 6 L (7-17) mg/dL Creatinine 0.4 L (0.6-1.2) mg/dL Prealbumin 0.094 L (0.200-0.400) g/L Folate 3.20 L (7.3-26.0) ng/mL HEART Score - HEART Score Troponin: Troponin T < 0.010 ng/mL (0.00-0.029) 11/02/21 16:08
[2021-11-04 17:48] LABS: BUN/Creatinine Ratio 13; Blood Urea Nitrogen 5 mg/dL (7-17); Calcium 8.3 mg/dL (8.4-10.2); Hemolysis Index 30
[2021-11-04] MEDS: oxyCODONE /ACETAMINOPHEN 5-325MG TAB PO PRN (21:23)
[2021-11-05 05:13] VITALS: BP 149/80
--- NOTE | 2021-11-05 07:30 | Discharge Summary ---
Providers - Providers Date of Admission: 11/02/21 21:57 Date of discharge: 11/05/21 Attending physician: FRANK FORRESTER 11/02/21 Consult to Physician [CONS] Routine Comment: Consulting Provider: NATA PORTER Physician Instructions: Reason For Exam: CVA 11/02/21 22:05 Occupational Therapy Evaluate and Treat [CONS] Routine Comment: Reason For Exam: Neuro deficits Physical Therapy Evaluation and Treat [CONS] Routine Comment: Reason For Exam: Neuro deficits Primary care physician: ERVIN PAREDES Hospitalization Condition: Fair Disposition: 01 HOME / SELF CARE / HOMELESS - Discharge Diagnoses (1) Acute CVA (cerebrovascular accident) Status: Acute (2) Hypokalemia Status: Acute (3) Numbness and tingling of both lower extremities Status: Acute (4) Hypertension Status: Chronic Qualifiers: Hypertension type: primary hypertension Qualified Code(s): I10 - Essential (primary) hypertension (5) Hyperlipidemia Status: Chronic Qualifiers: Hyperlipidemia type: mixed hyperlipidemia Qualified Code(s): E78.2 - Mixed hyperlipidemia (6) Malnutrition Status: Chronic Qualifiers: Malnutrition type: protein-calorie malnutrition Protein-calorie malnutrition severity: moderate Qualified Code(s): E44.0 - Moderate protein- calorie malnutrition (7) DVT prophylaxis Status: Acute (8) Advance care planning Status: Acute Exam - Constitutional Vitals: Temp Pulse Resp BP Pulse Ox 98.1 F 73 16 149/80 92 11/05/21 03:58 11/05/21 03:58 11/05/21 03:58 11/05/21 03:58 11/05/21 03:58 Plan Follow up with: ERVIN PAREDES MD [Primary Care Provider] - 7 Days
== END 2021-11-05 08:00 | disposition left against medical advice (07) | DRG 65 ==
LOC: ED 15:50 → 4A 21:57
PROVIDERS: ADMIT Internal Medicine; ATTEND Internal Medicine
DX: I63.9 Cerebral infarction, unspecified (principal); E44.0 Moderate protein-calorie malnutrition; E87.6 Hypokalemia; Z20.822 Contact with and (suspected) exposure to COVID-19; I10 Essential (primary) hypertension; E78.5 Hyperlipidemia, unspecified; Z82.49 Family history of ischemic heart disease and other diseases of the circulatory system; Z87.891 Personal history of nicotine dependence; Z88.6 Allergy status to analgesic agent; Z68.29 Body mass index [BMI] 29.0-29.9, adult
CPT/HCPCS: 36415; 70450; 70551; 80048; 80053; 80061; 82306; 82525; 82607; 82747; 82962; 84134; 84443; 84484; 85025; 85610; 85670; 85730; 86592; 93005; 93306; 93880; G0378; C8929; J1644; J2270; J2405; J3480; J7030; J7040

== ENCOUNTER 2021-11-24 05:00 | Emergency (ER) | payer SELFPAY ==
[2021-11-24 05:06] VITALS: BP 240/140
== END 2021-11-24 13:00 | disposition left against medical advice (07) ==
LOC: ED 05:00
DX: R53.1 Weakness (principal); Z53.21 Procedure and treatment not carried out due to patient leaving prior to being seen by health care provider